=== PATIENT | female | born 1995 | race Caucasian/White ===

== ENCOUNTER 2024-11-19 08:22 | Emergency (ER) | payer SELFPAY ==
[2024-11-19] VITALS (10 sets, daily range): BP systolic 92–122; BP diastolic 44–62; PULSE 70–97; RESP 1–20; TEMP 36.3–36.9; O2SAT 95–100; BMI 18.9
--- NOTE | ~2024-11-19 | CT_ITS ---
CLINICAL HISTORY: AMS CT head without contrast Comparison: None Findings: No intra-axial mass, midline shift, hydrocephalus, or acute hemorrhage. No significant atrophy-like change or white matter disease. There is no sinus or mastoid fluid. The orbits are unremarkable. No skull fracture. IMPRESSION: 1. No acute intracranial findings. This document has been electronically signed by: Saulo Harding MD on 11/19/2024 10:51:00
--- NOTE | 2024-11-19 08:25 | ECG_ITS ---
Test Reason : ETOH Blood Pressure : */* mmHG Vent. Rate : 82 BPM Atrial Rate : 82 BPM P-R Int : 150 ms QRS Dur : 84 ms QT Int : 368 ms P-R-T Axes : 80 71 50 degrees QTcB Int : 429 ms Normal sinus rhythm with sinus arrhythmia Normal ECG When compared with ECG of 19-Oct-2003 13:29, decrease in ventricular rate Referred By: Dyan Cunha Electronically Signed By: VERONICA ORTEGA
[2024-11-19] MEDS: OLANZapine 10 MG VIAL 5 MG IM (08:30)
[2024-11-19] MEDS: diazePAM 10 MG/2 ML CARTRIDGE 5 MG IM (08:30)
--- NOTE | 2024-11-19 08:48 | ED_ITS ---
HPI - Altered Mental Status General Chief Complaint: Overdose Stated Complaint: polysubstance use Source: EMS Mode of arrival: EMS Limitations: altered mental status History of Present Illness ED Provider: SALMA FRIAS narrative: 29 yo female with no known medical history no drug use has had a medical card for cannabis she came to visit family for weekend from [place]. She did great last night they did a yoga type class everything was normal. She even slept with mom last night. She woke up screaming in the bed. Mom notes no seizures activity she just kept screaming. Mom thought it was a nighttmare but then it wouldn't stop. This has never happened before. She has no hx of mental illness and takes no medications. She keeps screaming for her mom. The mom does note prior to all of this she was itching her skin like something was crawling on it and continued to do this when she was screaming. No recent travel per parents. She did not mention tick bites. She was given 5 of haldol and 2mg versed by EMS with no improvement and she continued to scream en route requiring physical restraints. Mom notes her grandfathers side had huntingtons ds but her dad did not and none of the children did. Her and her sibling were never tested. They sort of forgot about it. MD complaint: altered mental status and confusion Onset (ago): hour(s) (1) Timing confirmed by: family member Severity: severe Consistency of symptoms: constant Context: unknown Associated symptoms: denies other symptoms Treatments prior to arrival: other (haldol/versed) Related Data Allergies Allergy/AdvReac Type Severity Reaction Status Date / Time No Known Allergies Allergy Verified 11/19/24 08:41 Review of Systems 2 Review of Systems: ROS unable to be obtained due to altered mental status [facility] Past Medical History Source: unable to obtain (AMS) and obtained from family Medical History (Updated 11/19/24 @ 10:58 by Dyan Cunha DO) No pertinent past medical history Social History Social History (Updated 11/19/24 @ 08:58 by Dyan Cunha DO) Patient Tobacco Use Status: Never used Tobacco Advance Directives: No Advance Directives Information Provided: No Physical Exam ED Vital Signs: Vital Signs - 24 hr 11/19/24 08:37 11/19/24 09:21 11/19/24 09:30 Temperature 97.4 F 98.0 F Pulse Rate 97 88 87 Respiratory Rate 18 18 18 Blood Pressure 122/62 120/60 114/52 L Pulse Oximetry 100 99 99 Oxygen Delivery Method Room Air Room Air Room Air 11/19/24 10:15 11/19/24 10:19 11/19/24 11:14 Temperature Pulse Rate 70 81 78 Respiratory Rate 18 16 18 Blood Pressure Pulse Oximetry 98 98 98 Oxygen Delivery Method Room Air Room Air Room Air 11/19/24 12:53 11/19/24 14:46 11/19/24 14:51 Temperature 98.4 F 98.2 F Pulse Rate 79 72 70 Respiratory Rate 20 20 18 Blood Pressure 96/51 L 92/46 L 94/44 L Pulse Oximetry 96 96 95 Oxygen Delivery Method Room Air Room Air Room Air BMI result Body Mass Index 18.9 Appearance: cycles between awake and screaming then asleep. Thrashing and kicking attempting to get off stretcher. Moderate acute distress. Eyes: Pupils equal, round and reactive to light. 3mm no nystagmus ENT: Pharynx normal. atraumatic no tongue abrasions Neck: Normal inspection. Neck supple. no meningeal signs on exam - thrashing neck around no issues and normal ROM CVS: Normal heart rate and rhythm. Pulses normal. Respiratory: No respiratory distress. Breath sounds normal. Abdomen: Soft and nontender. Skin: Skin warm and dry. Normal skin color. Extremities: No lower extremity edema. Neuro: Oriented X 3. No motor deficit. No sensory deficit. CN2-12 intact no clonus or hyperreflexia Course Course Course Narrative: still no response to treatments - IV valium ordered at this time Reevaluation(s) Reevaluation #1: afebrile no wbc count no shift and negative CRP unlikely to be infectious no rectal temp this does not seem infectious Reevaluation #2: no response adding on droperidol IV patient repeatedly screaming she is in pain I am unclear if this is opiate withdrawal will try IV dilaudid to see if this helps. she has had a great improvement with IV dilaudid she is calm we can take the restraints off she is not screaming anymore. Reevaluation #3: patient is now lucid and calm after IV dilaudid she denies preceding infectious symptoms and denies recent fevers she states she uses no drugs 1040am. she knows the day and where she is she knows her parents. would refer to CARE team/psych at this point. observation for CARE team/psych consult ordered at 1126am signed out to Aida CANTU Medications Administered Generic Name Dose Route Start Last Admin Trade Name Frecarlitos PRN Reason Stop Dose Admin Sodium Chloride 1,000 mls @ 999 mls/hr 11/19/24 15:15 11/19/24 15:03 Ns IV 11/19/24 16:15 999 mls/hr .Q1H1M NELY Administration Discontinued Medications Generic Name Dose Route Start Last Admin Trade Name Shakeel PRN Reason Stop Dose Admin Diazepam 5 mg 11/19/24 08:25 11/19/24 08:30 Diazepam 10 Mg/2 Ml Cartridge IM 11/19/24 08:26 5 mg STAT STA Administration Diazepam 2.5 mg 11/19/24 09:00 11/19/24 09:08 Diazepam 10 Mg/2 Ml Cartridge IVPUSH 11/19/24 09:01 2.5 mg STAT STA Administration Droperidol 1.25 mg 11/19/24 09:19 11/19/24 09:34 Droperidol 5 Mg/2 Ml Vial IVPUSH 11/19/24 09:20 1.25 mg ONCE ONE Administration Hydromorphone HCl 0.5 mg 11/19/24 09:48 11/19/24 09:55 Hydromorphone Hcl 0.5 Mg/0.5 Ml Syringe IVPUSH 11/19/24 09:49 0.5 mg ONCE ONE Administration Protocol Hydromorphone HCl 0.5 mg 11/19/24 10:14 11/19/24 10:18 Hydromorphone Hcl 0.5 Mg/0.5 Ml Syringe IVPUSH 11/19/24 10:15 0.5 mg ONCE ONE Administration Protocol Lactated Ringer's 1,000 mls @ 999 mls/hr 11/19/24 08:58 11/19/24 09:06 Lr IV 11/19/24 09:58 999 mls/hr .Q1H1M ONE Administration Olanzapine 5 mg 11/19/24 08:25 11/19/24 08:30 Olanzapine 10 Mg Vial IM 11/19/24 08:26 5 mg STAT STA Administration Medical Decision Making Medical Decision Making MDM Narrative: 29 yo female with no known medical history no drug use here with undifferentiated agitation/AMS - no prior history of this. At this time will need moseley labs, lytes, tox screen, CT head for AMS - she is going to get IV medications and sedation ordered. Her parents are at bedside and have been updated. Unclear this could be toxic/metabolic/drug use/mental health/encephalopaty patient's tox screen was grossly negative except for positive marijuana positive for benzodiazepine which we gave. White count is normal at 7.4. Patient's chemistry showed a normal CRP. test negative thyroid normal no evidence for hypo or hyperthyroid patient's urine showed no signs of infection CT scan of the head was grossly negative for any acute evidence of bleeding history not consistent with meningitis patient in no distress. Now awake alert oriented. Wants to go home. No suicidal homicidal ideation patient wants to go to work. She works in a senior living. Asked patient if she used any recreational drugs patient denies. Care team evaluated patient. Agreed patient is awake alert oriented did not feel a need for patient to stay. Refer for patient to get outpatient help. Patient refused. Will discharge patient home. Differential Diagnosis Differential Diagnoses: The differential diagnosis associated with the presentation includes drug use, psychosis, inflammatory condition Admission/Observation Consideration of admission/observation: Escalation of care including admission/observation considered physician observation started at 1126am pending improvement and CARE team/psych consult - signed out to Dr. Parra Lab Data [facility] Lab Attestation statement: I reviewed the patient's lab results. 11/19/24 08:43 11/19/24 08:43 Labs: Lab Results 11/19/24 11/19/24 11/19/24 Range/Units 08:43 10:59 11:00 WBC 7.4 (4.8-10.8) X10*3/uL RBC 4.35 (4.20-5.50) X10*6/uL Hgb 14.0 (12.0-16.0) g/dl Hct 40.3 (37.0-47.0) % MCV 92.6 (80.0-98.0) fL MCH 32.2 (27.0-33.0) pg MCHC 34.7 (31.0-35.0) g/dl RDW 12.2 (11.0-16.0) % Plt Count 215 (160-400) X10*3/uL MPV 9.4 (9.4-12.3) fL Immature Gran % (Auto) 0.4 (0.0-0.4) % Neut % (Auto) 74.0 H (45-73) % Lymph % (Auto) 18.4 L (20-40) % [place] % (Auto) 4.6 (2-11) % Eos % (Auto) 1.8 (0-4) % Baso % (Auto) 0.8 (0-2) % Lymph # (Auto) 1.4 (1.2-4.9) X10*3/uL [place] # (Auto) 0.3 (0.1-1.2) X10*3/uL Eos # (Auto) 0.1 (0.0-0.4) X10*3/uL Baso # (Auto) 0.1 (0.0-0.2) X10*3/uL Abs Immat Gran (auto) 0.03 (0.00-0.03) X10*3/uL Absolute Neuts (auto) 5.5 (2.0-8.3) x10*3/uL Absolute Nucleated RBC 0.000 (0.0-0.012) X10*3/uL Nucleated RBC % (auto) 0.0 (0.0-0.2) /100WBC Sodium 141 (135-145) mmol/L Potassium 3.3 (3.3-5.1) mmol/L Chloride 109 H (96-108) mmol/L Carbon Dioxide 22 (22-29) mmol/L Anion Gap 13 (12-20) BUN 8 L (9-16) mg/dL Creatinine 0.70 (0.5-1.4) mg/dL Estim Creat Clear Calc 83.0 Estimated GFR > 60 Random Glucose 142 H (60-115) mg/dL Calcium 9.0 (8.4-10.2) mg/dL Magnesium 1.9 (1.6-2.6) mg/dL Total Bilirubin 0.6 (0.0-1.0) mg/dL Direct Bilirubin 0.2 (0.0-0.5) mg/dL AST 22 (5-31) U/L ALT 17 (0-31) U/L Alkaline Phosphatase 43 (39-117) U/L Ammonia 54 (13-55) umol/L Total Creatine Kinase 292 H (26-140) U/L Troponin I High Sens < 2.7 (<3.5-17.0) ng/L C-Reactive Protein < 0.10 (< or = 0.50) mg/dL Total Protein 6.7 (6.5-8.0) g/dL Albumin 4.1 (3.5-5.0) g/dL TSH 1.01 (0.32-4.0) uIU/mL Beta HCG, Quant < 2 mIU/mL Urine Color Yellow Urine Appearance Clear Urine pH 6.5 (5.0-9.0) Ur Specific [place] 1.015 (1.005-1.025) Urine Protein 30 (1+) H (Neg-Trace) mg/dL Urine Glucose (UA) Negative (Negative) mg/dL Urine Ketones Trace (Negative) mg/dL Urine Blood Negative (Negative) Urine Nitrite Negative (Negative) Ur Leukocyte Esterase Negative (Negative) Urine RBC 0-2 (0-2) /HPF Urine WBC 0-5 (0-5) /HPF Ur Squamous Epith Cells 3-5 (0-2) /HPF Urine Bacteria 1+ (None Seen) Hyaline Casts 0-2 (0-2) /LPF Urine Opiates Screen Not Detected (Not Detect) Ur Buprenorphine Scrn Not Detected (Not Detect) ng/mL Ur Oxycodone Screen Not Detected (Not Detect) ng/mL Urine Methadone Screen Not Detected (Not Detect) ng/mL Urine Fentanyl Screen Not Detected (Not Detect) Ur Barbiturates Screen Not Detected (Not Detect) Ur Phencyclidine Scrn Not Detected (Not Detect) Ur Amphetamines Screen Not Detected (Not Detect) U Benzodiazepines Scrn POSITIVE H (Not Detect) Urine Cocaine Screen Not Detected (Not Detect) U Marijuana (THC) Screen POSITIVE H (Not Detect) Ethyl Alcohol < 10 mg/dL Independent Interpretation I performed an independent interpretation of an: EKG and CT Scan (normal ) Interpretation: Rate: 82 Rhythm: NSR [place]: normal Normal P waves. Normal KI. Normal QRS complex. ST T wave : inverted t wave V1, no MAC qTC: 429 prior studies: no acute ischemia The study has been interpreted contemporaneously by me. . Radiology Impression Discussion of test interpretation with radiology: I have reviewed the radiologist's reading. Independent Historian Clinical information obtained from an independent historian. History obtained from or confirmed by: Parent and EMS Critical Care Time Critical Care Time Critical Care Time: Yes Total Critical Care Time: 60 Attestation: multiple repeat IM medications and IV medications for agitation, review of records, repeat family discussions I attest to this time spent taking care of the patient Discharge Plan Discharge Clinical Impression: Psychosis Qualifiers: Psychosis type: unspecified psychosis type Qualified Code(s): F29 - Unspecified psychosis not due to a substance or known physiological condition Patient Disposition: Home, Self-Care Instructions: Altered Mental Status (ED) Referrals: Physician,None [Primary Care Provider] - ( please follow-up with your primary physician) Print Language: Chilean
[2024-11-19 08:49] LABS: MANUAL DIFF FLAG NO
[2024-11-19 08:50] LABS: Basophils Absolute Auto 0.1 X10*3/uL (0.0-0.2); Basophils Percent Auto 0.8 % (0-2); Eosinophils Absolute Auto 0.1 X10*3/uL (0.0-0.4); Eosinophils Percent Auto 1.8 % (0-4); Hematocrit 40.3 % (37.0-47.0); Imm Gran Abs Auto 0.03 X10*3/uL (0.00-0.03); Imm Gran Pct Auto 0.4 % (0.0-0.4); Lymphocytes Absolute Auto 1.4 X10*3/uL (1.2-4.9); Lymphocytes Percent Auto 18.4 % (20-40); Mean Corpuscular HGB Conc 34.7 g/dl (31.0-35.0); Mean Corpuscular Hemoglobin 32.2 pg (27.0-33.0); Mean Corpuscular Volume 92.6 fL (80.0-98.0); Mean Platelet Volume 9.4 fL (9.4-12.3); Monocytes Absolute Auto 0.3 X10*3/uL (0.1-1.2); Monocytes Percent Auto 4.6 % (2-11); Neutrophils Absolute Auto 5.5 x10*3/uL (2.0-8.3); Platelet Count 215 X10*3/uL (160-400); Red Blood Count 4.35 X10*6/uL (4.20-5.50); Red Cell Distribution Width 12.2 % (11.0-16.0); White Blood Count 7.4 X10*3/uL (4.8-10.8)
[2024-11-19] MEDS: Lactated Ringers 1,000 ML 999 ML IV (09:06)
[2024-11-19 09:07] LABS: Ammonia 54 umol/L (13-55)
[2024-11-19] MEDS: diazePAM 10 MG/2 ML CARTRIDGE 2.5 MG IVPUSH (09:08)
--- OUTSIDE RECORDS SUMMARY | 2024-11-19 09:08 | XMS_ITS | Encounter Summary ---
Author Organization [facility] Address [address] [place] [id number] Phone Care Team Providers Care Launderette Attendant Name Role Phone Deborah Hollingsworth DO Primary Care Provider [phone] Encounter Details Date Type Department Care Team (Late st Contact Info) Description 01/22/2016 Documentation [facility] Family Medicine [address] [place] [address] Family Medicine, Physician [address], [place] [phone] Social History Tobacco Use Types Packs/Day Years Used Date Smoking Tobacco: Never Assessed Comments Unknown Sex and Gender Information Value Date Recorded Sex Assigned at Not on file Legal Sex Female 5:20 PM EDT Gender Identity Not on file Sexual Orientation Not on file documented as of this encounter Plan of Treatment Not on file documented as of this encounter Visit Diagnoses Not on filedocumented in this encounter Care Teams Launderette Attendant Relationship Specialty Start Date End Date Deborah Hollingsworth DO [address] [place] [address] PCP - General 02/19/17 12/30/22 documented as of this encounter
--- OUTSIDE RECORDS SUMMARY | 2024-11-19 09:08 | XMS_ITS | Clinical Summary ---
Author Organization [facility] Address [address] [place] [id number] Phone Care Team Providers Care Photoresist Contact Printer Name Role Phone Unavailable Primary Care Provider Unavailabl e Allergies No known active allergies Medications amitriptyline 10 MG tablet TK 1 T PO QD 2 7 Active mometasone-formo terol (DULERA) 100-5 MCG/ACT inhaler DULERA; inhale 2 puff by inhalation route 2 times every day in the morning and evening; 100 MCG-5 MCG/ACTUATION; 11/30/2016; Active 7 Active albuterol HFA (PROAIR HFA) 108 (90 BASE) MCG/ACT inhaler PROAIR HFA; inhale 2-6 puff by inhalation route every 4 - 6 hours as needed; 90 MCG; 01/11/2017; Active 7 Active SUMAtriptan 50 MG tablet TK 1 T PO QD PRN 5 7 Active sertraline 50 MG tabletIndication s:Other mixed anxiety disorders Take 1 tablet (50 mg total) by mouth daily. 90 tablet 8 Active norgestimate-eth inyl estradiol (TRINESSA, 28,) 0.18/0.215/0.25 MG-35 MCG per tabletIndication s:Encounter for control pills maintenance Take 1 tablet by mouth once daily. 84 tablet 1 8 Active Active Problems Problem Noted Date Diagnosed Date Moderate persistent asthma without complication 02/08/2017 Overview (02/27/2018): Sees [place] [facility] 2018; Dulera 200/5: 2p BID Anxiety disorder 08/20/2016 Assessment & Plan (06/03/2017 8:33 AM EST): She see on campus counseling on occasion; feels her anxiety is pretty stable so we will try dec her sertraline dose to 50mg until I see her back in NOVEMBER when she is back from college- hope to wean her off sertraline by summer Recurrent headache 07/24/2015 Overview (02/05/2018): Sees Dr. Edwards- stopped Amitryp 10mg ineffective; cont prn imitrex dose to 100mg; FU Assessment & Plan (06/03/2017 8:32 AM EST): She will see Dr. Edwards for recheck next week- reports amitrip 10mg is not effective for her HAs but prn imitrex works well; she has been on amitrip in the past which did not work well for her- I advised her to make sure Dr. Edwards knows this as he may try her her on a different med Immunizations Immunization Administration Dates Next Due DTP 03/17/2000, 8,1996,07/13,1996 H1N1 05/03/2009 HPV, Quadrivalent 10/30/2008,05/22/2008,02/23/20 08 Hep A, ped/adol 02/11/2015,08/08/2014 Hep B, ped/adol 1996,1996,1996 Hib (PRP-T) 06/18/1997, 7,1996,05/06 Influenza Split 03/30/2012,06/16/2011 Influenza, injectable, quadr ivalent, preservative free 06/02/2017,08/19/2016,06/05/2015,04/02,06/12/2013 Influenza, intranasal, trivalent 05/05/2010 MMR 03/16/2000,03/21/1997 Meningococcal Conj (Menactra) MCV4P 08/08/2014,1 OPV 03/17/2000, 7,1996,05/08 Tdap 05/03/2009 Varicella 02/23/2008,10/09/1997 Family History Relation Name Status Comments Father Alive Father: mom brian sn't know medical hx Maternal Grandmother Materna l grandmother: Stroke Mother Mother: Alive a nd well, Hypertension, Diabetes mellitus, Fibromyalgia Other Family history of Diabetes mellitus, Family history of Coronary artery disease Social History Tobacco Use Types Packs/Day Years Used Date Smoking Tobacco: Never Smokeless Tobacco: Never Comments:Never smoker Comments Unknown Sex and Gender Information Value Date Recorded Sex Assigned at Not on file Legal Sex Female 5:20 PM EDT Gender Identity Not on file Sexual Orientation Not on file Last Filed Vital Signs Vital Sign Reading Time Taken Comments Blood Pressure 111/61 06/02/2017 2:54 PM EST Pulse 87 06/02/2017 2:54 PM EST Temperature 36.3 ??C (97.4 ??F) 06/02/2017 2:54 PM ES T Respiratory Rate - - Oxygen Saturation 98% 09/17/2014 12:00 AM EDT Inhaled Oxygen Concentration - - Weight 64.9 kg (143 lb) 06/02/2017 2:54 PM EST Height 152.4 cm (5') 02/08/2017 12:00 AM EDT Body Mass Index 27.93 02/08/2017 12:00 AM EDT Plan of Treatment Health Maintenance Due Date Last Done Comments DTaP,Tdap,and Td Vaccines (7 - Td or Tdap) 05/03/2019 05/03/2009, 03/17/2000, 10/09/1997, Additional history exists Influenza Vaccines (#1) 2024 06/02/20 17, 08/19/2016, 06/05/2015, Additional history exists COVID-19 Vaccine ( season) 2024 Hepatitis B Vaccines Completed 1996, 1996, 1996 HIB Vaccines Completed 06/18/1997, 01/1997, 1996, Additional history exists MMR Vaccines Completed 03/16/2000, 03/21/1997 IPV Vaccines Completed 03/17/2000, 01/1997, 1996, Additional history exists Varicella Vaccines Completed 02/23/2008, 10/09/1997 HPV Vaccines Completed 10/30/2008, 05/12, 02/23/2008 Meningococcal Vaccine Completed 08/08/2014, 009 Hepatitis A Vaccines Completed 02/11/2015, 08/08/19 15 Men B Vaccine Aged Out No longer elig ible based on patient's age to complete this topic Pneumococcal Vaccine Aged Out No long er eligible based on patient's age to complete this topic Procedures * Due to [place] [employer] law, this organization might not be sharing sensitive test results. Procedure Name Priority Date/Time Associated Diagnosis Comments CHLAMYDIA AND GONORRHEA, AMPLIFIED Routine 02/09/2017 1:13 PM EDT from Last 3 Months or Most Recently Relevant to Health Maintenance Results * Due to [place] [employer] law, this organization might not be sharing sensitive test results. * Chlamydia and Gonorrhoea, Amplified (02/09/2017 1:13 PM EDT) [facility] URINE GC AMP PROBE NEGATIVE [facility] Comment: No Neisseria Gonorrhoeae RNA detected in this patient's sample (REFERENCE RANGE/NORMAL VALUE: NOT DETECTED) NOTE: This test uses ekg monitor tech-mediated amplification method to detect rRNA from C.Trachomatis and N.Gonorrhoeae. A negative result does not preclude infection. In the case of a negative urine result, testing of an endocervical(female) or urethral(male) specimen is recommended if there is high clinical suspicion of infection. Due to very high sensitivity of Nucleic Acid Amplification Test, false positive results may occur. Therefore, specimen handling is extremely important. In patients in whom the disease is unlikely, additional sample for testing should be considered after an initial positive result. The performance characteristics of this test have not been evaluated in children. The Aptima Combo2 assay is not intended for the evaluation of suspected sexual abuse or for other medico-legal indications. The ordering provider should assess if the patient had consensual sex without risk of sexual abuse. Consult the [facility] if needed. Contact phone number . Therapeutic failure or success cannot be determined with the Aptima Combo2 assay since nucleic acid may persist following appropriate antimicrobial therapy. The Centers for Disease Control and Prevention (CDC) recommends confirmatory retesting using culture or a different nucleic acid amplification test when positive results occur, if indicated. Testing performed or reported by [facility], a Service of [facility], [place] [address] CLIA ??[id number] Levi Burnette MD, PhD, Machine Paint Mixer URINE CHLAMYDIA AMP PROBE NEGATIVE [facility] Comment: No Chlamydia Trachomatis RNA detected in this patient's sample (REFERENCE RANGE/NORMAL VALUE: NOT DETECTED) 02/09/2017 1:13 PM EDT Narrative [facility] - 02/09/2017 1:13 PM EDT URINE CHLAMYDIA GC AMP PROBE us Deborah Hollingsworth DO LAB MICROBIOLOGY - GENERAL ORDER FRANCI Final Result [facility] [address] [place] [address], from Last 3 Months or Most Recently Relevant to Health Maintenance Insurance [facility] Address: [address] [address]
--- OUTSIDE RECORDS SUMMARY | 2024-11-19 09:08 | XMS_ITS | Encounter Summary ---
Author Organization [facility] Address [address] [place] [address] Phone Care Team Providers Care Venetian Blind Cleaner Name Role Phone Deborah Hollingsworth DO Primary Care Provider [phone] Encounter Details Date Type Department Care Team (Late st Contact Info) Description 07/01/2016 Documentation [facility] [place] Family Medicine [address] [place] [address] Family Medicine, Physician [address] [phone] Social History Tobacco Use Types Packs/Day Years [...] on filedocumented in this encounter Care Teams Venetian Blind Cleaner Relationship Specialty Start Date End Date Deborah Hollingsworth DO [address] [place] [address] PCP - General 02/19/17 12/30/22 documented as of this encounter
--- OUTSIDE RECORDS SUMMARY | 2024-11-19 09:08 | XMS_ITS | Encounter Summary ---
Author Organization [facility] Address [address] [place] [id number] Phone Care Team Providers Care Audio Operator Name Role Phone Deborah Hollingsworth DO Primary Care Provider [phone] Encounter Details Date Type Department Care Team (Late st Contact Info) Description 07/01/2016 Documentation [facility] Family Medicine [address] [place] [address] Family Medicine, Physician [address] [phone] Social History Tobacco Use Types Packs/Day Years [...] on filedocumented in this encounter Care Teams Audio Operator Relationship Specialty Start Date End Date Deborah Hollingsworth DO [address] [place] [address] PCP - General 02/19/17 12/30/22 documented as of this encounter
--- OUTSIDE RECORDS SUMMARY | 2024-11-19 09:08 | XMS_ITS | Encounter Summary ---
Author Organization [facility] Address [address] [place] [address] Phone Care Team Providers Care Dipping Machine Operator Name Role Phone Deborah Hollingsworth DO Primary Care Provider [phone] Encounter Details Date Type Department Care Team (Late st Contact Info) Description 02/25/2017 Conversion Encounter [facility] [address] [place] [address] Social History Tobacco Use Types Packs/Day Years Used Date Smoking Tobacco: Never Comments:Never smoker Comments Unknown Sex and Gender Information Value Date Recorded Sex Assigned at Not on file Legal Sex Female 5:20 PM EDT Gender Identity Not on file Sexual Orientation Not on file documented as of this encounter Plan of Treatment Not on file documented as of this encounter Visit Diagnoses Not on filedocumented in this encounter Care Teams Dipping Machine Operator Relationship Specialty Start Date End Date Deborah Hollingsworth DO [address] [place] [address] PCP - General 02/19/17 12/30/22 documented as of this encounter
--- OUTSIDE RECORDS SUMMARY | 2024-11-19 09:08 | XMS_ITS | Encounter Summary ---
Author Organization [facility] Address [address] [place] [id number] Phone Care Team Providers Care Acoustical Engineer Name Role Phone Deborah Hollingsworth DO Primary Care Provider Encounter Details Date Type Department Care Team (Late st Contact Info) Description 04/06/2014 Documentation [facility] [place] Family Medicine [address] [place] [address] Family Medicine, Physician [address], [place] [id number] Social History Tobacco Use Types Packs/Day Years [...] on filedocumented in this encounter Care Teams Acoustical Engineer Relationship Specialty Start Date End Date Deborah Hollingsworth DO [address] [place] [address] PCP - General 02/19/17 12/30/22 documented as of this encounter
--- OUTSIDE RECORDS SUMMARY | 2024-11-19 09:08 | XMS_ITS | Encounter Summary ---
Author Organization [facility] Address [address] [place] [id number] Phone Care Team Providers Care Endoscopy Registered Nurse Name Role Phone Deborah Hollingsworth DO Primary Care Provider [phone] Encounter Details Date Type Department Care Team (Late st Contact Info) Description 06/23/2011 Documentation [facility] [place] Family Medicine [address] [place] [address] Family Medicine, Physician [address] [place], [place] [phone] Social History Tobacco Use Types Packs/Day Years [...] on filedocumented in this encounter Care Teams Endoscopy Registered Nurse Relationship Specialty Start Date End Date Deborah Hollingsworth DO [address] [place] [address] PCP - General 02/19/17 12/30/22 documented as of this encounter
--- OUTSIDE RECORDS SUMMARY | 2024-11-19 09:08 | XMS_ITS | Encounter Summary ---
Author Organization [facility] Address [address] [place] [id number] Phone Care Team Providers Care Business Administration Professor Name Role Phone Deborah Hollingsworth DO Primary Care Provider [phone] Encounter Details Date Type Department Care Team (Late st Contact Info) Description 12/04/2016 Documentation [facility] Family Medicine [address] [place] [address] Family Medicine, Physician [address] [phone] Social History Tobacco Use Types Packs/Day Years [...] on filedocumented in this encounter Care Teams Business Administration Professor Relationship Specialty Start Date End Date Deborah Hollingsworth DO [address] [place] [address] PCP - General 02/19/17 12/30/22 documented as of this encounter
[2024-11-19 09:12] LABS: Alanine Aminotransferase 17 U/L (0-31); Albumin Level 4.1 g/dL (3.5-5.0); Alkaline Phosphatase 43 U/L (39-117); Anion Gap 13 (12-20); Aspartate Amino Transferase 22 U/L (5-31); Bilirubin Direct 0.2 mg/dL (0.0-0.5); Bilirubin Total 0.6 mg/dL (0.0-1.0); Blood Urea Nitrogen 8 mg/dL (9-16); C Reactive Protein < 0.10 mg/dL (< or = 0.50); Carbon Dioxide 22 mmol/L (22-29); Chloride 109 mmol/L (96-108); Estimated Glomerular Filt Rate > 60; Ethanol < 10 mg/dL; Glucose Random 142 mg/dL (60-115); Magnesium 1.9 mg/dL (1.6-2.6); Potassium 3.3 mmol/L (3.3-5.1); Sodium 141 mmol/L (135-145); Total Protein 6.7 g/dL (6.5-8.0)
[2024-11-19 09:13] LABS: Troponin-I High Sensitivity < 2.7 ng/L (<3.5-17.0)
[2024-11-19 09:29] LABS: HCG Quantitative < 2 mIU/mL; TSH reflex Free T4 1.01 uIU/mL (0.32-4.0)
[2024-11-19] MEDS: droPERidol 5 MG/2 ML VIAL 1.25 MG IVPUSH (09:34)
[2024-11-19] MEDS: HYDROmorphone HCl 0.5 MG/0.5 ML SYRINGE IVPUSH ×2 (09:55→10:18)
[2024-11-19 11:11] LABS: Appearance Urine Clear; Color Urine Yellow; Glucose Urine UA Negative (Negative); Leukocyte Esterase Urine Negative (Negative); Nitrite Urine Negative (Negative); PH 6.5 (5.0-9.0); Specific Gravity - Urine 1.015 (1.005-1.025); UMIC TRIGGER UACC YES; Urine Blood Negative (Negative); Urine Ketones Trace mg/dL (Negative); Urine Protein 30 (1+) mg/dL (Neg-Trace)
[2024-11-19 11:17] LABS: Bacteria Urine 1+ (None Seen); Hyaline Casts Urine 0-2 /LPF (0-2); RBC Urine 0-2 /HPF (0-2); WBC Urine 0-5 /HPF (0-5)
[2024-11-19 11:22] LABS: Amphetamine Screen Urine Not Detected (Not Detect); Barbiturates, Urine Not Detected (Not Detect); Benzodiazepines Screen Urine POSITIVE (Not Detect); Buprenorphine Scr Not Detected (Not Detect); Cannabinoid Screen Urine POSITIVE (Not Detect); Cocaine Screen Urine Not Detected (Not Detect); Fentanyl, urine Not Detected (Not Detect); Methadone Screen, Urine Not Detected (Not Detect); Opiate Screen Urine Not Detected (Not Detect); Oxycodone Screen Urine Not Detected (Not Detect); Phencyclidine Screen Urine Not Detected (Not Detect)
[2024-11-19] MEDS: 0.9 % Sodium Chloride 1,000 ML 999 ML IV (15:03)
--- NOTE | 2024-11-19 15:10 | PC.NURSE ---
pt reports she wants to leave, dr becerril to the bedside
== END 2024-11-19 16:14 | disposition home or self-care (01) ==
PROVIDERS: Emergency Provider Emergency Medicine
DX: F29 Unspecified psychosis not due to a substance or known physiological condition (principal); R45.1 Restlessness and agitation; I49.8 Other specified cardiac arrhythmias; R10.2 Pelvic and perineal pain; R41.82 Altered mental status, unspecified; F12.90 Cannabis use, unspecified, uncomplicated; F16.90 Hallucinogen use, unspecified, uncomplicated; Z79.899 Other long term (current) drug therapy; Z51.81 Encounter for therapeutic drug level monitoring
CPT/HCPCS: 36415; 70450; 80048; 80076; 80307; 81001; 82140; 82550; 83735; 84443; 84484; 84702; 85025; 86140; 93005; 96372; 96374; 96375; 96376; 99284; J1171; J1790; J2359; J3360; J7120; S9485

== ENCOUNTER → 2024-11-19 08:25 | Outpatient (BNV) | payer SELFPAY | PROVIDERS: Emergency Provider Emergency Medicine; Visit Provider Internal Medicine | DX: Z13.6 Encounter for screening for cardiovascular disorders (principal) | CPT/HCPCS: 93010 ==

== ENCOUNTER → 2024-11-19 08:53 | Outpatient (BNV) | payer SELFPAY | PROVIDERS: Emergency Provider Emergency Medicine; Visit Provider Radiology Vascular & Interventional Radiology | DX: R41.82 Altered mental status, unspecified (principal) | CPT/HCPCS: 70450 ==